=== PATIENT | female | born 2000 | race Caucasian/White ===

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

== ENCOUNTER → 2019-08-18 | Outpatient (CLI) | payer BC ==
--- NOTE | 2019-08-18 10:57 | US ---
EXAM DESCRIPTION: Pelvic,Non-OB: Ultrasound. CLINICAL HISTORY: 19 years Female AMENORRHEA COMPARISON: None. TECHNIQUE: Transcutaneous scanning through the urine filled bladder. Endovaginal scanning. Motley-scale and Doppler modes. FINDINGS: Uterus 7.2 x 3.9 x 3.3 cm. 48.9 mL. Endometrium 2.8 mm.. Myometrium heterogeneous. Uterus not retroverted. Cervix unremarkable. Cul-de-sac: No fluid.. Right ovary 3.3 x 2.6 x 2.0 cm. 8.8 mm. Normal waveform and color Doppler vascularity. Multiple follicles are simple with the largest follicle 1 cm. No adnexal mass or free fluid. Left ovary 3.9 x 2.9 x 2.4 cm. 14.2 mL. Normal waveform and color Doppler vascularity. 3.0 cm simple cysts: Nonvascular no septations and no mural nodules or thickening. No adnexal mass or free fluid. IMPRESSION: 1. Normal size and position of the uterus. No endometrial thickening. No fluid in the cul-de-sac. 2. Left ovary enlarged with 3 cm simple cyst. No follow-up imaging is recommended. Bilateral follicles with normal vascularity. No adnexal mass or free fluid. Electronically signed by: Brenden Vanessa MD 08/18/2019 10:56 AM CDT
== END ==
LOC: US 09:58
PROVIDERS: ATTEND Family Medicine
DX: N91.2 Amenorrhea, unspecified (principal); N83.202 Unspecified ovarian cyst, left side